=== PATIENT | male | born 1970 | race Caucasian/White ===

== ENCOUNTER 2022-08-17 10:40 | Outpatient (CLI) | payer SELFPAY ==
--- NOTE | 2022-08-17 12:24 | XR_ITS ---
WS: [id number] XR lumbar spine 2-3V* [id number] REASON FOR EXAM: LUMBAGO FINDINGS: Normal lumbar spine curvature is. No focal vertebral body abnormality. Mild narrowing of the L5-S1 disc space with mild endplate sclerosis and osteophytosis. Remainder of the intervertebral disc spaces are intact and well preserved. No significant listhesis. Mild to moderate degenerative changes in the facet joints L3-S1. XR/XR lumbar spine 2-3V* [id number] IMPRESSION: Degenerative spondylosis in the lumbar spine as above.
== END 2022-08-17 10:41 | disposition home or self-care (01) ==
PROVIDERS: PCP Nurse Practitioner Family; Visit Provider Nurse Practitioner Family
DX: M54.50 Low back pain, unspecified (principal); M47.816 Spondylosis without myelopathy or radiculopathy, lumbar region
CPT/HCPCS: 72100